=== PATIENT | male | born 1990 | race Caucasian/White ===

== ENCOUNTER 2019-11-22 17:51 | Inpatient (IN) | payer MEDICAID ==
[~2019-11-22] VITALS: Ht 167.6 cm; Wt 64.2 kg
[~2019-11-22 17:51] MED LIST: BUPR-93 PO; OLAN10TA3 PO
[2019-11-22] MEDS ORDERED: QUET25TA PO (18:34)
[2019-11-22 19:09] LABS: BASOPHILS % (AUTO) 0.8 % (0.0-2.0); EOSINOPHILS % (AUTO) 0.4 % (1.0-6.0); HEMATOCRIT 47.1 % (41-53); HEMOGLOBIN 15.8 g/dL (13.5-17.5); LYMPHOCYTES # (AUTO) 1.7 K/uL (1.0-4.8); LYMPHOCYTES % (AUTO) 19.5 % (22.0-44.0); MEAN CORPUSCULAR HEMOGLOBIN 29.1 pg (26.0-34.0); MEAN CORPUSCULAR HGB CONC 33.5 G/dL (31.0-37.0); MEAN CORPUSCULAR VOLUME 87 fL (80-100); MONOCYTES # (AUTO) 0.5 K/uL (0.1-1.0); MONOCYTES % (AUTO) 5.6 % (2.0-9.0); NEUTROPHILS # (AUTO) 6.4 K/uL (1.8-7.7); NEUTROPHILS % (AUTO) 73.7 % (40.0-70.0); PLATELET COUNT (AUTO) 325 K/uL (150-450); RED BLOOD CELL COUNT(AUTO) 5.43 MIL/uL (4.50-5.90); RED CELL DISTRIBUTION WIDTH 15.1 % (11.5-14.5)
[2019-11-22 19:26] LABS: ANION GAP 9 mmol/L (8-16); CALCIUM, TOTAL 9.6 mg/dL (8.8-10.5); CARBON DIOXIDE 27 mmol/L (22-29); CHLORIDE 99 mmol/L (98-107); CREATININE 0.84 mg/dL (0.60-1.30); GLOMERULAR FILTR. RATE CALC > 60 mL/min (>60); GLUCOSE,RANDOM 99 mg/dL (70-110); POTASSIUM 3.3 mmol/L (3.5-5.1); SODIUM SERUM 135 mmol/L (136-145); UREA NITROGEN, BLOOD 6 mg/dL (7-18)
[2019-11-22 19:33] LABS: ALANINE AMINOTRANSFERASE 116 U/L (12-78); ALBUMIN 4.3 g/dL (3.4-5.0); ALKALINE PHOSPHATASE 153 U/L (46-116); ASPARTATE AMINOTRANSFERASE 95 U/L (15-37); BILIRUBIN,TOTAL 0.4 mg/dL (0.1-1.0)
[2019-11-22] MEDS ORDERED: LORazepam 2 MG TABLET PO ONE (21:00)
[2019-11-22] MEDS ORDERED: HALOPERIDOL 5 MG TABLET PO ONE (21:00)
[2019-11-22] MEDS ORDERED: DiphenhydrAMINE HCL 25 MG CAPSULE PO ONE (21:00)
[2019-11-22] MEDS ORDERED: POTASSIUM CHLORIDE 10% 40 MEQ/30 ML LIQUID UDCUP PO ONE (21:00)
[2019-11-22] MEDS ORDERED: ZOLPIDEM TARTRATE 10 MG TABLET PO PRN (21:30)
[2019-11-23 05:02] LABS: CHOL/HDL RATIO 3.1 (4.2-7.3); CHOLESTEROL 142 mg/dL (131-200); HDL CHOLESTEROL 46 mg/dL (40-60); LDL CHOL (CALC.) 92 mg/dL (0-130); TRIGLYCERIDES 21 mg/dL (15-150)
[2019-11-23 05:12] VITALS: BP 111/76
[2019-11-23] MEDS: LORazepam 2 MG TABLET PO PRN (09:12)
[2019-11-23] MEDS: OLANZapine 5 MG RAPDIS TABLET PO PRN (09:12)
[2019-11-23 09:29] VITALS: BP 115/75
[2019-11-23] MEDS ORDERED: BuPROPion HCL XL 150 MG ER TABLET PO ONE (14:30)
[2019-11-23] MEDS: OLANZapine 10 MG RAPDIS TABLET PO SCH (20:42)
[2019-11-24 04:38] VITALS: BP 110/63
[2019-11-24] MEDS: BuPROPion HCL XL 150 MG ER TABLET PO SCH (09:08)
[2019-11-24 09:26] VITALS: BP 114/64
[2019-11-24] MEDS: LORazepam 2 MG TABLET PO PRN ×2 (10:46→18:39)
[2019-11-24 16:00] VITALS: BP 109/64
[2019-11-24] MEDS: OLANZapine 5 MG RAPDIS TABLET PO PRN (18:39)
[2019-11-24] MEDS: OLANZapine 10 MG RAPDIS TABLET PO SCH (21:07)
[2019-11-25 00:42] VITALS: BP 110/66
[2019-11-25 08:38] VITALS: BP 111/63
[2019-11-25] MEDS: BuPROPion HCL XL 150 MG ER TABLET PO SCH (08:59)
[2019-11-25] MEDS ORDERED: OMEPRAZOLE 20 MG CAPSULE PO PRN (11:30)
[2019-11-25] MEDS ORDERED: IBUPROFEN 600 MG TABLET PO PRN (11:30)
[2019-11-25] MEDS ORDERED: MAG HYDROX/AL HYDROX/SIMETH ES 30 ML SUSPENSION UDCUP PO PRN (11:30)
[2019-11-25] MEDS ORDERED: DOCUSATE SODIUM 100 MG CAPSULE PO PRN (11:30)
[2019-11-25] MEDS ORDERED: ACETAMINOPHEN 325 MG TABLET PO PRN (11:30)
[2019-11-25] MEDS ORDERED: BACITRACIN 28 GM OINTMENT TP PRN (11:30)
[2019-11-25] MEDS ORDERED: ALBUTEROL SULFATE HFA 90 MCG/PUFF 8 GM INHALER IH PRN (11:30)
[2019-11-25] MEDS ORDERED: PETROLATUM,WHITE 28 GM JELLY TP PRN (11:30)
[2019-11-25] MEDS ORDERED: MAGNESIUM HYDROXIDE SUSPENSION 30 ML UDCUP PO PRN (11:30)
[2019-11-25] MEDS ORDERED: BENZOCAINE/MENTHOL LOZENGE PO PRN (11:30)
[2019-11-25] MEDS ORDERED: LOPERAMIDE HCL 2 MG CAPSULE PO PRN (11:30)
[2019-11-25] MEDS ORDERED: ONDANSETRON HCL 4 MG TABLET PO PRN (11:30)
[2019-11-25] MEDS ORDERED: CloNIDine HCL 0.1 MG TABLET PO PRN (11:30)
[2019-11-25 16:23] VITALS: BP 109/65
[2019-11-25] MEDS: OLANZapine 10 MG RAPDIS TABLET PO SCH (20:19)
[2019-11-26 06:23] VITALS: BP 111/65
[2019-11-26 08:20] VITALS: BP 117/65
[2019-11-26] MEDS: BuPROPion HCL XL 150 MG ER TABLET PO SCH (09:09)
[2019-11-26] MEDS: LORazepam 2 MG TABLET PO PRN (14:26)
[2019-11-26 16:14] VITALS: BP 112/69
[2019-11-26] MEDS: OLANZapine 10 MG RAPDIS TABLET PO SCH (20:22)
[2019-11-27 08:16] LABS: APPEARANCE,URINE CLEAR (CLEAR); BILIRUBIN,URINE NEGATIVE (NEGATIVE); GLUCOSE, URINE (UA) NEGATIVE (NEGATIVE); KETONES,URINE NEGATIVE (NEGATIVE); LEUKOCYTE ESTERASE ,URINE NEGATIVE (NEGATIVE); NITRATE,URINE NEGATIVE (NEGATIVE); OCCULT BLOOD,URINE NEGATIVE (NEGATIVE); PROTEIN,URINE NEGATIVE (NEGATIVE); UROBILINOGEN,URINE 0.2 mg/dL (<=1.0)
[2019-11-27 08:17] LABS: AMPHET/METH SCREEN,URINE POSITIVE (NEGATIVE); BARBITURATE SCREEN, URINE NEGATIVE (NEGATIVE); BENZODIAZEPINES SCREEN,URINE NEGATIVE (NEGATIVE); CANNABINOID SCREEN,URINE POSITIVE (NEGATIVE); COCAINE SCREEN,URINE NEGATIVE (NEGATIVE); METHADONE SCREEN, URINE NEGATIVE (NEGATIVE); OPIATE SCREEN,URINE NEGATIVE (NEGATIVE)
[2019-11-27 08:20] LABS: PHENCYCLIDINE SCREEN,URINE NEGATIVE (NEGATIVE)
[2019-11-27] MEDS: BuPROPion HCL XL 150 MG ER TABLET PO SCH (08:50)
[2019-11-27 08:54] VITALS: BP 110/70
[2019-11-27 16:36] VITALS: BP 125/79
[2019-11-27] MEDS: OLANZapine 10 MG RAPDIS TABLET PO SCH (20:10)
[2019-11-27] MEDS: LORazepam 2 MG TABLET PO PRN (20:35)
[2019-11-28 04:31] VITALS: BP 115/82
[2019-11-28] MEDS: BuPROPion HCL XL 150 MG ER TABLET PO SCH (08:39)
[2019-11-28 08:46] VITALS: BP 129/85
[2019-11-28 16:12] VITALS: BP 117/81
[2019-11-28] MEDS: OLANZapine 10 MG RAPDIS TABLET PO SCH (20:07)
[2019-11-29 03:03] VITALS: BP 115/82
[2019-11-29] MEDS: OLANZapine 5 MG RAPDIS TABLET PO PRN (03:04)
[2019-11-29] MEDS: LORazepam 2 MG TABLET PO PRN (03:04)
[2019-11-29 07:49] LABS: BASOPHILS % (AUTO) 0.8 % (0.0-2.0); EOSINOPHILS % (AUTO) 2.6 % (1.0-6.0); HEMATOCRIT 43.5 % (41-53); HEMOGLOBIN 14.7 g/dL (13.5-17.5); LYMPHOCYTES # (AUTO) 2.5 K/uL (1.0-4.8); LYMPHOCYTES % (AUTO) 27.1 % (22.0-44.0); MEAN CORPUSCULAR HEMOGLOBIN 29.5 pg (26.0-34.0); MEAN CORPUSCULAR HGB CONC 33.8 G/dL (31.0-37.0); MEAN CORPUSCULAR VOLUME 87 fL (80-100); MONOCYTES # (AUTO) 0.6 K/uL (0.1-1.0); MONOCYTES % (AUTO) 6.8 % (2.0-9.0); NEUTROPHILS # (AUTO) 5.9 K/uL (1.8-7.7); NEUTROPHILS % (AUTO) 62.7 % (40.0-70.0); PLATELET COUNT (AUTO) 312 K/uL (150-450); RED BLOOD CELL COUNT(AUTO) 4.99 MIL/uL (4.50-5.90)
[2019-11-29 08:08] LABS: ANION GAP 6 mmol/L (8-16); CALCIUM, TOTAL 8.3 mg/dL (8.8-10.5); CARBON DIOXIDE 26 mmol/L (22-29); CHLORIDE 107 mmol/L (98-107); CREATININE 0.77 mg/dL (0.60-1.30); GLOMERULAR FILTR. RATE CALC > 60 mL/min (>60); GLUCOSE,RANDOM 91 mg/dL (70-110); POTASSIUM 3.8 mmol/L (3.5-5.1); SODIUM SERUM 139 mmol/L (136-145); UREA NITROGEN, BLOOD 12 mg/dL (7-18)
[2019-11-29 08:09] LABS: ALANINE AMINOTRANSFERASE 51 U/L (12-78); ALBUMIN 3.3 g/dL (3.4-5.0); ALKALINE PHOSPHATASE 148 U/L (46-116); ASPARTATE AMINOTRANSFERASE 17 U/L (15-37); BILIRUBIN,TOTAL 0.2 mg/dL (0.1-1.0); PHOSPHORUS 3.6 mg/dL (2.5-4.9); TOTAL PROTEIN, SERUM 6.7 g/dL (6.4-8.2)
[2019-11-29] MEDS: BuPROPion HCL XL 150 MG ER TABLET PO SCH (08:11)
[2019-11-29 09:05] VITALS: BP 135/92
[2019-11-29] MEDS ORDERED: OLAN10TA6 PO (11:01)
== END 2019-11-29 15:06 | disposition home or self-care (01) | DRG 750 ==
LOC: EMS 17:54 → B2S 21:21 → UNDOADMIN 21:21 → B2S 22:00 → UNDOADMIN 11-23 04:31
PROVIDERS: ADMIT Psychiatry & Neurology Child & Adolescent Psychiatry; ATTEND Psychiatry & Neurology Psychiatry
DX: F20.0 Paranoid schizophrenia (principal); F10.10 Alcohol abuse, uncomplicated; F41.9 Anxiety disorder, unspecified; R45.851 Suicidal ideations; Z87.891 Personal history of nicotine dependence; K59.00 Constipation, unspecified; E87.6 Hypokalemia; G47.00 Insomnia, unspecified; Z20.828 Contact with and (suspected) exposure to other viral communicable diseases
CPT/HCPCS: 80307; 83735; 84100; 87081; 87426; G0480